=== PATIENT | female | born 1955 | race Hispanic/Latino ===

== ENCOUNTER 2017-06-16 11:48 | Emergency (ER) | payer OTHER ==
--- NOTE | 2017-06-16 12:09 | C.PDOC ---
History Of Present Illness Patient is a 62 y/o schizophrenic homeless female who presents herself to the ED with unknown complaints. Patient has a Hx of frequent visits and is well known to the physicians and ED. Patient is foul-smelling and disheveled at baseline. Crisis notified but no intervention needed. There are no new complaints at this time. Time Seen by Provider: 06/16/17 12:07 Chief Complaint (Nursing): Substance Abuse History Per: Patient History/Exam Limitations: no limitations Recent travel outside of the [place]: No Past Medical History Reviewed: Historical Data, Nursing Documentation, Vital Signs Vital Signs: Last Vital Signs Temp 98.2 F 06/16/17 12:07 Pulse 95 H 06/16/17 12:07 Resp 16 06/16/17 12:07 BP 140/92 H 06/16/17 12:07 Pulse Ox 99 06/16/17 12:07 - Medical History PMH: No Chronic Diseases Surgical History: No Surg Hx Family History: States: Unknown Family Hx Review Of Systems Except As Marked, All Systems Reviewed And Found Negative. Physical Exam - Physical Exam Appears: Well, Non-toxic Skin: Normal Color, Warm, Dry Head: Atraumatic, Normacephalic Oral Mucosa: Moist Chest: Symmetrical Cardiovascular: Rhythm Regular, No Murmur Respiratory: Normal Breath Sounds, No Rales, No Rhonchi, No Wheezing Gastrointestinal/Abdominal: Soft, No Tenderness Neurological/Psych: Normal Speech Medical Decision Making Medical Decision Making: well known baseline schizophrenia, no acute issues ok for d/c to street intermediate placement offered Disposition Doctor Will See Patient In The: Office Counseled Patient/Family Regarding: Studies Performed, Diagnosis - Disposition Referrals: [facility] [place] [Outside] [facility] [Outside] [facility] [Outside] Disposition: HOME/ ROUTINE Disposition Time: 12:09 Condition: GOOD Additional Instructions: follow-up with outpatient psych services and Nursing Home placement of your perference. Instructions: Schizophrenia (ED) Forms: [employer] (Nauruan) - Clinical Impression Clinical Impression: Schizophrenia - Scribe Statement The provider has reviewed the documentation as recorded by the Scribe Funmilayo Kang All medical record entries made by the Scribe were at my direction and personally dictated by me. I have reviewed the chart and agree that the record accurately reflects my personal performance of the history, physical exam, medical decision making, and the department course for this patient. I have also personally directed, reviewed, and agree with the discharge instructions and disposition.
[2017-06-16 12:12] VITALS: BP 140/92; PULSE 95; RESP 16; TEMP 98.2; O2SAT 99
== END 2017-06-16 12:30 | disposition home or self-care (01) ==
LOC: C.ER 11:48
DX: F20.9 Schizophrenia, unspecified (principal); Z59.0 Homelessness